=== PATIENT | female | born 1975 | race Caucasian/White ===

== ENCOUNTER → 2016-04-24 | Outpatient (CLI) | payer BC ==
--- NOTE | 2016-04-24 11:13 | MM ---
Reason for exam: follow-up at short interval from prior study. Last mammogram was performed 6 months ago. History: Family history of breast cancer in paternal aunt at age 24 and breast cancer in maternal aunt. Took hormonal contraceptives for 7 years beginning at age 17. Physical Findings: Nurse did not find any significant physical abnormalities on exam. MG Diagnostic Mammo LT w CAD CC and MLO view(s) were taken of the left breast. Prior study comparison: October 11, 2015, bilateral MG screening mammo w CAD. There are scattered fibroglandular densities. There is no dominant lesion. There are stable benign left axillary masses, probable lymph nodes. These results were verbally communicated with the patient and result sheet given to the patient on 04/24/16. ASSESSMENT: Benign, BI-RAD 2 RECOMMENDATION: Return to routine screening mammogram schedule for both breasts. Back on schedule.
--- NOTE | 2016-04-24 11:16 | USB ---
Reason for exam: follow-up at short interval from prior study. History: Family history of breast cancer in paternal aunt at age 24 and breast cancer in maternal aunt. Took hormonal contraceptives for 7 years beginning at age 17. US Breast LT Left breast ultrasound including all four quadrants, the retroareolar region and axilla demonstrates no cystic or solid lesion seen greater than 0.50cm. These results were verbally communicated with the patient and result sheet given to the patient on 04/24/16. ASSESSMENT: Benign, BI-RAD 2 RECOMMENDATION: Return to routine screening mammogram schedule for both breasts. Back on schedule.
== END | disposition home or self-care (01) ==
LOC: RADMAMWWP 10:06
PROVIDERS: ATTEND Obstetrics & Gynecology
DX: R92.8 Other abnormal and inconclusive findings on diagnostic imaging of breast (principal)
CPT/HCPCS: 76641; G0206

== ENCOUNTER → 2018-06-17 | Outpatient (CLI) | payer BC ==
--- NOTE | 2018-06-20 12:15 | MM ---
Reason for exam: screening (asymptomatic). Last mammogram was performed 1 year and 4 months ago. History: Family history of breast cancer in paternal aunt at age 24 and breast cancer in maternal aunt. Took hormonal contraceptives for 7 years beginning at age 17. Physical Findings: A clinical breast exam by your physician is recommended on an annual basis and results should be correlated with mammographic findings. MG Screening Mammo w CAD Bilateral CC and MLO view(s) were taken. Prior study comparison: February 12, 2017, bilateral MG screening mammo w CAD. April 24, 2016, left breast MG diagnostic mammo LT w CAD. The breast tissue is heterogeneously dense. This may lower the sensitivity of mammography. There is no discrete abnormality. ASSESSMENT: Negative, BI-RAD 1 RECOMMENDATION: Routine screening mammogram of both breasts in 1 year.
== END ==
LOC: RADMAMWWP 09:55
PROVIDERS: ATTEND Obstetrics & Gynecology
DX: Z12.31 Encounter for screening mammogram for malignant neoplasm of breast (principal); Z80.3 Family history of malignant neoplasm of breast
CPT/HCPCS: 77067

== ENCOUNTER → 2019-04-07 | Day surgery (SDC) | payer BC ==
[2019-04-05 09:59] VITALS: BMI 26.5
[~2019-04-07] MED LIST: LACTATED RINGERS 1,000 ML IV SCH; LIDOCAINE 1% INJ 10MG/ML (20 ML MDV) ONE; PROPOFOL 10 MG/ML 20 ML VIAL IV ONE
[2019-04-07 08:46] VITALS: RESP 16; TEMP 98.9
--- NOTE | 2019-04-07 09:21 | P.GSHP ---
History of Present Illness H&P Date: 04/07/19 Chief Complaint: GERD, diarrhea 's is a 43-year-old female who presents today for EGD colonoscopy. Patient points of GERD and diarrhea. She is appears history of LAP-BAND surgery. Past Medical History Past Medical History: Mitral Valve Prolapse (MVP) Additional Past Medical History / Comment(s): heart murmmur. recent diarrhea and stomach pain History of Any Multi-Drug Resistant Organisms: None Reported Past Surgical History: Appendectomy, Bariatric Surgery, Section, Cholecystectomy, Uterine Ablation Additional Past Surgical History / Comment(s): lap-band 2010 Past Anesthesia/Blood Transfusion Reactions: Postoperative Nausea & Vomiting (PONV) Smoking Status: Never smoker - Past Family History Mother Family Medical History: No Reported History Medications and Allergies Home Medications Medication Instructions Recorded Confirmed Type ALPRAZolam [Xanax] 0.25 mg PO BID PRN 01/23/15 04/07/19 History Cyclobenzaprine [Flexeril] 10 mg PO DAILY PRN 01/23/15 04/07/19 History Ibuprofen [Motrin] 200 - 400 mg PO Q6HR PRN 01/23/15 04/05/19 History Rizatriptan Benzoate [Maxalt] 10 mg PO DAILY PRN 01/23/15 04/07/19 History Allergies Allergy/AdvReac Type Severity Reaction Status Date / Time prochlorperazine Allergy shaking Verified 04/07/19 08:28 [From Compazine] prochlorperazine edisylate Allergy shaking Verified 04/07/19 08:28 [From Compazine] prochlorperazine maleate Allergy shaking Verified 04/07/19 08:28 [From Compazine] steri strips Allergy Rash/Hives Uncoded 04/07/19 08:28 Surgical - Exam Vital Signs Temp Pulse Resp BP Pulse Ox 98.9 F 94 16 123/76 100 04/07/19 08:39 04/07/19 08:39 04/07/19 08:39 04/07/19 08:39 04/07/19 08:39 - General well developed, well nourished, no distress - Eyes PERRL - ENT normal pinna - Neck no masses - Respiratory normal expansion - Cardiovascular Rhythm: regular - Abdomen Abdomen: soft, non tender Assessment and Plan Assessment: GERD, diarrhea. We'll perform EGD and colonoscopy.
--- NOTE | 2019-04-07 09:42 | P.OP ---
Date of Procedure: 04/07/19 Preoperative Diagnosis: GERD Diarrhea Postoperative Diagnosis: Antral gastritis LAP-BAND without evidence of any inflammation or erosion Procedure(s) Performed: EGD Anesthesia: MAC Surgeon: Caleb Alves Pathology: other (Antrum) Condition: stable Disposition: PACU Description of Procedure: The patient's placed on the endoscopy table in the lateral position. She received IV sedation. The gastroscope was oropharynx passed in the esophagus and into the stomach. Scope was then placed through the pylorus. The first and second portion duodenum appeared normal. Scope was then brought back the antrum this was mildly inflamed. A biopsies performed. Scope was then retroflexed and the remainder of the stomach appeared normal. Patient had a previous placed Kyle device. This was without evidence of erosion. The scope was then brought back in the proximal gastric pouch appeared normal. The GE junction was at 40 cm. The distal esophagus appeared normal. The proximal esophagus appeared normal. Scope withdrawn for patient. Next digital rectal exam was performed. This was normal. The flexible colonoscope was then placed patient anus passed rotator entire colon. The ileocecal valve was visualized. The cecum, ascending and transverse colon appeared normal. In the descending and sigmoid colon there was evidence of diverticular changes. There is no evidence of diverticulitis. The scope was then brought back the rectum and this appeared normal. Scope withdrawn for patient.
[2019-04-07 10:07] VITALS: BP 116/76; PULSE 69
== END ==
LOC: ORWHC2ENDO 08:16
PROVIDERS: ATTEND Surgery
DX: K29.50 Unspecified chronic gastritis without bleeding (principal); K21.9 Gastro-esophageal reflux disease without esophagitis; K57.30 Diverticulosis of large intestine without perforation or abscess without bleeding; I34.1 Nonrheumatic mitral (valve) prolapse; F41.9 Anxiety disorder, unspecified; Z98.84 Bariatric surgery status; Z90.49 Acquired absence of other specified parts of digestive tract; Z91.048 Other nonmedicinal substance allergy status; Z88.8 Allergy status to other drugs, medicaments and biological substances
CPT/HCPCS: 88305; 84703; 45378; 43239; J2001; J2704

== ENCOUNTER → 2019-12-01 | Outpatient (CLI) | payer BC ==
--- NOTE | 2019-12-01 10:43 | ECHOF ---
Referral Reason:R01.1 heart murmur MEASUREMENTS -------- HEIGHT: 154.9 cm WEIGHT: 66.2 kg BP: RVIDd: 2.9 cm (< 3.3) IVSd: 0.8 cm (0.6 - 1.1) LVIDd: 4.7 cm (3.9 - 5.3) LVPWd: 1.1 cm (0.6 - 1.1) IVSs: 1.2 cm LVIDs: 3.2 cm LVPWs: 1.4 cm LAESV Index (A-L): 21.13 ml/m Ao Diam: 2.6 cm (2.0 - 3.7) AV Cusp: 1.9 cm (1.5 - 2.6) MV EXCURSION: 14.270 mm (> 18.000) MV EF SLOPE: 91 mm/s (70 - 150) EPSS: 0.8 cm MV E Travon: 0.92 m/s MV DecT: 182 ms MV A Travon: 0.57 m/s MV E/A Ratio: 1.61 RAP: 5.00 mmHg RVSP: 25.43 mmHg FINDINGS -------- This was a technically good study. The left ventricular size is normal. Left ventricular wall thickness is normal. Overall left vent ricular systolic function is normal with, an EF between 55 - 60 %. The diastolic filling pattern is normal for the age of the patient 8.54. The right ventricle is normal in size. Normal LA size by volume 22+/-6 ml/m2. The right atrial size is normal. Interatrial and interventricular septum intact. The aortic valve is trileaflet and appears structurally normal. There is no evidence of aortic regu rgitation. There is no evidence of aortic stenosis. The mitral valve is normal. There is trace to mild mitral regurgitation. Mild tricuspid regurgitation present. There is no evidence of pulmonary hypertension. The right v entricular systolic pressure, as measured by Doppler, is 25.43mmHg. There is no pulmonic regurgitation present. The aortic root size is normal. Normal inferior vena cava with normal inspiratory collapse consistent with estimated right atrial pre ssure of 5 mmHg. There is no pericardial effusion. CONCLUSIONS -------- 1. The left ventricular size is normal. 2. Left ventricular wall thickness is normal. 3. Overall left ventricular systolic function is normal with, an EF between 55 - 60 %. 4. The diastolic filling pattern is normal for the age of the patient 8.54 5. There is trace to mild mitral regurgitation. 6. Mild tricuspid regurgitation present. TALEND DEVELOPER: Lisa Chun RDCS
== END | disposition home or self-care (01) ==
LOC: RADECHMAIN 08:32
PROVIDERS: ATTEND Family Medicine
DX: I08.1 Rheumatic disorders of both mitral and tricuspid valves (principal)
CPT/HCPCS: 93306

== ENCOUNTER → 2019-12-01 | Outpatient (CLI) | payer BC ==
--- NOTE | 2019-12-04 09:25 | MM ---
Reason for exam: screening (asymptomatic). Last mammogram was performed 1 year and 5 months ago. History: Family history of breast cancer in paternal aunt at age 24 and breast cancer in maternal aunt. Took hormonal contraceptives for 7 years beginning at age 17. Physical Findings: A clinical breast exam by your physician is recommended on an annual basis and results should be correlated with mammographic findings. MG Screening Mammo w CAD Bilateral CC and MLO view(s) were taken. XCCL view(s) were taken of the right breast. Prior study comparison: June 17, 2018, bilateral MG screening mammo w CAD. February 12, 2017, bilateral MG screening mammo w CAD. The breast tissue is heterogeneously dense. This may lower the sensitivity of mammography. There is no discrete abnormality. ASSESSMENT: Negative, BI-RAD 1 RECOMMENDATION: Routine screening mammogram of both breasts in 1 year.
== END | disposition home or self-care (01) ==
LOC: RADMAMWWP 09:05
PROVIDERS: ATTEND Obstetrics & Gynecology
DX: Z12.31 Encounter for screening mammogram for malignant neoplasm of breast (principal)
CPT/HCPCS: 77067

== ENCOUNTER → 2020-12-13 | Outpatient (CLI) | payer BC ==
--- NOTE | 2020-12-17 11:11 | MM ---
Reason for exam: screening (asymptomatic). Last mammogram was performed 1 year ago. History: Family history of breast cancer in paternal aunt at age 24 and breast cancer in maternal aunt. Took hormonal contraceptives for 7 years beginning at age 17. Physical Findings: A clinical breast exam by your physician is recommended on an annual basis and results should be correlated with mammographic findings. MG 3D Screening Mammo W/Cad Bilateral CC and MLO view(s) were taken. Prior study comparison: December 01, 2019, bilateral MG screening mammo w CAD. June 17, 2018, bilateral MG screening mammo w CAD. February 12, 2017, bilateral MG screening mammo w CAD. There are scattered fibroglandular densities. No significant changes when compared with prior studies. ASSESSMENT: Benign, BI-RAD 2 RECOMMENDATION: Routine screening mammogram of both breasts in 1 year.
== END | disposition home or self-care (01) ==
LOC: RADMAMWWP 10:02
PROVIDERS: ATTEND Obstetrics & Gynecology
DX: Z12.31 Encounter for screening mammogram for malignant neoplasm of breast (principal); Z80.3 Family history of malignant neoplasm of breast
CPT/HCPCS: 77063; 77067

== ENCOUNTER → 2022-01-09 | Outpatient (CLI) | payer BC ==
--- NOTE | 2022-01-12 08:27 | MM ---
Reason for Exam: Screening (asymptomatic). Last mammogram was performed 1 year(s) and 1 month(s) ago. Patient History: Menarche at age 14. First Full-Term at age 25. Hormonal Contraceptives for 7 years from age 17 until age 24. Paternal aunt had breast cancer, age 24. Maternal aunt had breast cancer, age 45. Risk Values: Riya 5 year model risk: 0.7%. NCI Lifetime model risk: 8.6%. Prior Study Comparison: 06/17/2018 Bilateral Screening Mammogram, [facility]. 12/01/2019 Bilateral Screening Mammogram, [facility]. 12/13/2020 Bilateral Screening Mammogram, [facility]. Tissue Density: The breast tissue is heterogeneously dense. This may lower the sensitivity of mammography. Findings: Analyzed By CAD. There is no suspicious group of microcalcifications or new suspicious mass in either breast. No significant change from prior exams. Overall Assessment: Negative, BI-RAD 1 Management: Screening Mammogram of both breasts in 1 year. A clinical breast exam by your physician is recommended on an annual basis and results should be correlated with mammographic findings. Electronically signed and approved by: Patrick Perez D.O.
== END | disposition home or self-care (01) ==
LOC: RADMAMWWP 08:26
PROVIDERS: ATTEND Obstetrics & Gynecology
DX: Z12.31 Encounter for screening mammogram for malignant neoplasm of breast (principal); Z80.3 Family history of malignant neoplasm of breast
CPT/HCPCS: 77063; 77067

== ENCOUNTER → 2023-02-19 | Outpatient (CLI) | payer BC ==
--- NOTE | 2023-02-22 16:20 | MM ---
Reason for Exam: Screening (asymptomatic). Last mammogram was performed 1 year(s) and 1 month(s) ago. Patient History: Menarche at age 14. First Full-Term at age 25. Hormonal Contraceptives for 7 years from age 17 until age 24. Paternal aunt had breast cancer, age 24. Maternal aunt had breast cancer, age 45. Last menstrual period: 02/14/2023 Risk Values: Riya 5 year model risk: 0.8%. NCI Lifetime model risk: 8.5%. Prior Study Comparison: 12/01/2019 Bilateral Screening Mammogram, [facility]. 12/13/2020 Bilateral Screening Mammogram, [facility]. 01/09/2022 Bilateral MG 3D screening mammo w/cad, [facility]. Tissue Density: The breast tissue is heterogeneously dense. This may lower the sensitivity of mammography. Findings: Analyzed By CAD. Abdomen appears symmetrical and stable. No significant interval change is evident. No suspicious groups of microcalcifications, spiculated or lobular masses, architectural distortion or other secondary signs of malignancy are mammographically apparent. Overall Assessment: Benign, BI-RAD 2 Management: Screening Mammogram of both breasts in 1 year. A negative mammogram report should not preclude additional follow up of suspicious palpable abnormalities. Patient should continue monthly self breast exam. A clinical breast exam by your physician is recommended on an annual basis and results should be correlated with mammographic findings. Electronically signed and approved by: Ismael Gutierrez D.O. Radiologis
== END | disposition home or self-care (01) ==
LOC: RADMAMWWP 13:31
PROVIDERS: ATTEND Obstetrics & Gynecology
DX: Z12.31 Encounter for screening mammogram for malignant neoplasm of breast (principal); Z80.3 Family history of malignant neoplasm of breast
CPT/HCPCS: 77063; 77067

== ENCOUNTER → 2024-03-03 | Outpatient (CLI) | payer BC ==
--- NOTE | 2024-03-09 17:50 | MM ---
Reason for Exam: Screening (asymptomatic). Last screening mammogram was performed 12 month(s) ago. Patient History: Menarche at age 14. First Full-Term at age 25. Premenopausal. Hormonal Contraceptives for 7 years from age 17 until age 24. Paternal aunt had breast cancer, age 24. Maternal aunt had breast cancer, age 45. Risk Values: Riya 5 year model risk: 0.8%. NCI Lifetime model risk: 8.4%. Prior Study Comparison: 12/13/2020 Bilateral Screening Mammogram, [facility]. 01/09/2022 Bilateral MG 3D screening mammo w/cad, [facility]. 02/19/2023 Bilateral MG 3D screening mammo w/cad, [facility]. Tissue Density: The breasts are heterogeneously dense, which may obscure small masses. Findings: Analyzed By CAD. Areas of asymmetric density are unchanged. There is no suspicious group of microcalcifications or new suspicious mass in either breast. Overall Assessment: Benign, BI-RAD 2 Management: Screening Mammogram of both breasts in 1 year. . Patient should continue monthly self-breast exams. A clinical breast exam by your physician is recommended on an annual basis. This exam should not preclude additional follow-up of suspicious palpable abnormalities. Note on Riya scores and lifetime risk: 1. A Riya score greater than 3% is considered moderate risk. If this is the case, consider specialist referral to assess eligibility for a risk reducing agent. 2. If overall lifetime risk for the development of breast cancer is 20% or higher, the patient may qualify for future screening with alternating mammogram and breast MRI. [facility], , 03/09/2024 5:47 PM. Electronically signed and approved by: Brian Zaragoza M.D. Radiologist
== END | disposition home or self-care (01) ==
LOC: RADMAMWWP 10:55
PROVIDERS: ATTEND Obstetrics & Gynecology
DX: Z12.31 Encounter for screening mammogram for malignant neoplasm of breast (principal); Z80.3 Family history of malignant neoplasm of breast; R92.333 Mammographic heterogeneous density, bilateral breasts
CPT/HCPCS: 77063; 77067

== ENCOUNTER → 2024-05-22 | Outpatient (CLI) | payer BC ==
[2024-05-22 08:30] VITALS: BP 111/74; PULSE 82; RESP 15; TEMP 98.1
--- NOTE | 2024-05-22 15:14 | P.PAINPG ---
PQRS Measure Charge Sheet Comment: HISTORY OF PRESENT ILLNESS: A 48 yr old female as a referral from Dr Macias presents today w severe and chronic FORD and neck pain since Feb 2024 secondary to Occipital Neuralgia/ Cervicogenic FORD for evaluation. Pt states pain level is provoked at 6-8 /10 in intensity, wax & wanes in character, localized in the back of the head, predominantly axial, sharp in character w occasional shooting pain towards the back of the ears to the top of the head. Pain is provoked by hyperextension and lasts 3 weeks every month. Pain is alleviated by FARHEEN blocks in the past, PT x 6 wks which ended in 2020, physician guided home exercises 5-6 times weekly since 2020, massage therapy monthly since 2016, chiropractic treatments monthly since 2007, medications, heat, repositioning and rest . PMH: OA, Hypothyroidism, MVP PSH: EGD (2023), Appendectomy, Lap Band (2009), Cholecystectomy, , Uterine Ablation SH: Negative x3 FH: Mo- No Reported History All: See list Meds: See list incl Maxalt, Flexeril, Ibu REVIEW OF ORGAN SYSTEMS: CONSTITUTIONAL: No fevers or chills. No recent weight loss. NEUROLOGICAL: + numbness and tingling along the distal extremities. No seizure disorders or headaches. MUSCULOSKELETAL: + pain PSYCHIATRIC: Denies current depression or suicidal thoughts. Physical Examinations : Constitutional : Cooperative , not in acute distress . Neurologic : Cranial nerve II to XII intact. No focal neurological deficits. Psychiatric : alert & oriented x 3. Matching mood & appropriate affect. Judgment & insight intact. Musculoskeletal : Cervical Spine +BL FARHEEN TTP Motor strength in the deltoid and biceps: Normal right side. Normal Left side Motor strength biceps and the wrist extensors: Normal right side . Normal left side Motor strength in the triceps muscle: Normal right side. Normal left side Deep tendon reflexes: Normal at the biceps. Normal at Brachioradialis. Normal at triceps Vertebral body tenderness to deep palpation over Cervical facet loading test: positive bilaterally Spurling test: positive bilaterally Neck distraction test: positive bilaterally Fernandez sign: positive bilaterally Lumbar spine Motor strength lower extremities ,thigh and legs 5/5 Right side , 5/5 Left side Deep tendon reflexes : Normal Knee Jerk. Normal Ankle Jerk Vertebral body tenderness over Leggett Test positive Lumbar facet Loading Test: positive Right / positive Left Range of motion of the lumbar spine Flexion 30 degrees, extension 10 degrees Straight Leg Raise test: Left/ Right positive at degrees Edyta test: positive right / positive left. Severe tenderness over the Sacroiliac joint on the Right / Left sides Gaenslen test: positive bilaterally Seated flexion test: positive bilaterally. Sacral spine : Severe tenderness over the Sacroiliac joint: right side / left side Range of motion: Flexion of the lumbar spine <60 degrees Range of motion: Extension of the lumbar spine <20 degrees Gaenslen's Test positive Edyta test: positive right side / left side Thigh Thrust Test Sacral Thrust Test Imaging: None on file Assessment/ Plan : Occipital Neuralgia, Cervicogenic FORD Recommendation of Skull X ray M543.81. Risks, benefits of procedure discussed and patient verbalized understanding. Admits to anti- coagulant use or medical history of diabetes. Protocol for discontinuation/ continuation of medications cathy procedure discussed. All questions answered. I have spent greater than 30 minutes on patient care today. Dr Bryant was available by phone for the evaluation of this patient. The time was used to review the medical records including relevant urine studies and Prescription history (MAPs), review of the available imaging, evaluation and examination of the patient, coordination of care with the medical staff and if applicable referring physicians, as well as creation of the medical record PQRS Narrative: Smoking Status Never smoker Home Medications: Ambulatory Orders ALPRAZolam [Xanax] 0.25 mg PO BID PRN 01/23/15 Cyclobenzaprine [Flexeril] 10 mg PO DAILY PRN 01/23/15 Ibuprofen [Motrin] 200 - 400 mg PO Q6HR PRN 01/23/15 Rizatriptan Benzoate [Maxalt] 10 mg PO DAILY PRN 01/23/15 Diphenox-Atrop 2.5-0.025 mg [Lomotil] 1 tab PO 5XD PRN 3 Days #15 tablet 04/07/19 Controlled Substance Measures - Controlled Substance Measures Is patient prescribed a controlled substance at discharge?: No
== END ==
LOC: PNWHC3 08:05
PROVIDERS: ATTEND Specialist
DX: M54.81 Occipital neuralgia (principal); G44.86 Cervicogenic headache; Z88.3 Allergy status to other anti-infective agents; Z91.048 Other nonmedicinal substance allergy status
CPT/HCPCS: 99202

== ENCOUNTER → 2024-06-07 | Outpatient (CLI) | payer BC ==
[2024-06-07 08:23] VITALS: BP 101/66; PULSE 80; RESP 17; TEMP 97.6
--- NOTE | 2024-06-07 15:19 | P.PAINPG ---
PQRS Measure Charge Sheet Comment: HISTORY OF PRESENT ILLNESS: A 48 yr old female presents today w severe and chronic FORD and neck pain since Feb 2024 secondary to Occipital Neuralgia/ Cervicogenic FORD for evaluation. Pt states pain level is provoked at 8 /10 in intensity, wax & wanes in character, localized in the back of the head, predominantly axial, stabby in character w occasional shooting pain towards the back of the ears to the top of the head. Pain is provoked by hyperextension and lasts 3 weeks every month. Pain is alleviated by FARHEEN blocks in the past, PT x 6 wks which ended in 2020, physician guided home exercises 5-6 times weekly since 2020, massage therapy monthly since 2016, chiropractic treatments monthly since 2007, medications, heat, repositioning and rest . Inteventional procedures include Medications include Maxalt, Flexeril, Ibu REVIEW OF ORGAN SYSTEMS: CONSTITUTIONAL: No fevers or chills. No recent weight loss. NEUROLOGICAL: + numbness and tingling along the distal extremities. No seizure disorders or headaches. MUSCULOSKELETAL: + pain PSYCHIATRIC: Denies current depression or suicidal thoughts. Physical Examinations : Constitutional : Cooperative , not in acute distress . Neurologic : Cranial nerve II to XII intact. No focal neur ological deficits. Psychiatric : alert & oriented x 3. Matching mood & appropriate affect. Judgment & insight intact. Musculoskeletal : Cervical Spine +BL FARHEEN TTP Motor strength in the deltoid and biceps: Normal right side. Normal Left side Motor strength biceps and the wrist extensors: Normal right side . Normal left side Motor strength in the triceps muscle: Normal right side. Normal left side Deep tendon reflexes: Normal at the biceps. Normal at Brachioradialis. Normal at triceps Vertebral body tenderness to deep palpation over Cervical facet loading test: positive bilaterally Spurling test: positive bilaterally Neck distraction test: positive bilaterally Fernandez sign: positive bilaterally Lumbar spine Motor strength lower extremities ,thigh and legs 5/5 Right side , 5/5 Left side Deep tendon reflexes : Normal Knee Jerk. Normal Ankle Jerk Vertebral body tenderness over Leggett Test positive Lumbar facet Loading Test: positive Right / positive Left Range of motion of the lumbar spine Flexion 30 degrees, extension 10 degrees Straight Leg Raise test: Left/ Right positive at degrees Edyta test: positive right / positive left. Severe tenderness over the Sacroiliac joint on the Right / Left sides Gaenslen test: positive bilaterally Seated flexion test: positive bilaterally. Sacral spine : Severe tenderness over the Sacroiliac joint: right side / left side Range of motion: Flexion of the lumbar spine <60 degrees Range of motion: Extension of the lumbar spine <20 degrees Gaenslen's Test positive Edyta test: positive right side / left side Thigh Thrust Test Sacral Thrust Test Imaging: None on file Assessment/ Plan : Occipital Neuralgia, Cervicogenic FORD Recommendation of PT x 6 wks, x ray cervical M54.12. Would benefit from BL FARHEEN #1 if continues to have symptoms. Risks, benefits of procedure discussed and patient verbalized understanding. Admits to anti- coagulant use or medical history of diabetes. Protocol for discontinuation/ continuation of medications cathy procedure discussed. All questions answered. I have spent greater than 30 minutes on patient care today. Dr Bryant was available by phone for the evaluation of this patient. The time was used to review the medical records including relevant urine studies and Prescription history (MAPs), review of the available imaging, evaluation and examination of the patient, coordination of care with the medical staff and if applicable referring physicians, as well as creation of the medical record PQRS Narrative: Smoking Status Never smoker Hx Alcohol Use (MH) No Home Medications: Ambulatory Orders ALPRAZolam [Xanax] 0.25 mg PO BID PRN 01/23/15 Cyclobenzaprine [Flexeril] 10 mg PO DAILY PRN 01/23/15 Ibuprofen [Motrin] 200 - 400 mg PO Q6HR PRN 01/23/15 Rizatriptan Benzoate [Maxalt] 10 mg PO DAILY PRN 01/23/15 Diphenox-Atrop 2.5-0.025 mg [Lomotil] 1 tab PO 5XD PRN 3 Days #15 tablet 04/07/19 Controlled Substance Measures - Controlled Substance Measures Is patient prescribed a controlled substance at discharge?: No
== END ==
LOC: PNWHC3 08:05
PROVIDERS: ATTEND Specialist
DX: M54.12 Radiculopathy, cervical region (principal); M54.81 Occipital neuralgia; E11.9 Type 2 diabetes mellitus without complications; Z88.8 Allergy status to other drugs, medicaments and biological substances
CPT/HCPCS: 99212

== ENCOUNTER → 2024-06-09 | Outpatient (CLI) | payer BC ==
--- NOTE | 2024-06-09 14:04 | XR ---
EXAMINATION TYPE: XR cervical spine limited DATE OF EXAM: 06/09/2024 1:47 PM COMPARISON: 10/26/2010 CLINICAL INDICATION: Female, 48 years old with history of M54.12 RADICULOPATHY, CERVICAL REGION; PHH, pain TECHNIQUE: XR cervical spine limited, (1-2) views of the cervical spine FINDINGS: The osseous structures show normal alignment without evidence of an acute fracture. Minimal osteophyt e formation present throughout the cervical spine. Pedicles are intact. Soft tissues are within norm al limits. The odontoid appears intact. IMPRESSION: 1. No fracture or dislocation. 2. Minimal degenerative disc disease changes of the cervical spine. [facility], , 06/09/2024 2:01 PM
== END | disposition home or self-care (01) ==
LOC: RADXRMAIN 13:30
PROVIDERS: ATTEND Specialist
DX: M50.10 Cervical disc disorder with radiculopathy, unspecified cervical region (principal)
CPT/HCPCS: 72040

== ENCOUNTER 2024-07-21 08:02 | Day surgery (SDC) | payer BC ==
[2024-07-19 13:19] VITALS: BMI 29.2
[~2024-07-21 08:02] MED LIST changes: -LIDOCAINE 1% INJ 10MG/ML (20 ML MDV) ONE; -PROPOFOL 10 MG/ML 20 ML VIAL IV ONE
[2024-07-21 08:29] VITALS: TEMP 97.7
[2024-07-21] MEDS ORDERED: TRIAMCINOLONE ACETONIDE 40 MG/ML 1 ML VIAL ONE (09:29)
[2024-07-21] MEDS ORDERED: ROPIVACAINE 5 MG/ML 30 ML VIAL ONE (09:29)
--- NOTE | 2024-07-21 09:40 | P.PCN ---
Date of Procedure: 07/21/24 Description of Procedure: Procedure: Bilateral greater occipital nerve block Pre and post-procedure diagnosis: Headache and Occipital neuralgia Performed by: Jacob Sanders, Anesthesia: Local with 1% Lidocaine Complications: none blood loss: none specimen removed none . Indications for Procedure: Ms. Meade is a 48-year-old female had a long history of migraine headache, and occipital neuralgia, who has been suffering from chronic headache. Procedure and Findings: The patient was seen and examined and written informed consent was obtained after explaining the risks, benefits and alternative of the procedure to the patient. The patient was positioned in the sitting position with the head slightly flexed and forehead rested on a pillow. By palpation, the external occipital protuberance and mastoid process were identified and mid point in between was located. One target point was medial to that mid point for greater occipital nerve and another target was lateral to that mid point for lesser occipital nerve. The target point for greater occipital nerve was just medial to the occipital artery pulsation. The skin preparation was done with Chloraprep x 2 and sterile technique was observed throughout the procedure. A 25-gauge 1.5 inch needle was placed vertically downward, bony contact was obtained, negative aspiration was confirmed and 6 ml of block solution was injected. The needle was redirected little medially and laterally in a fanning fashion and addition medication was injected after negative aspiration. For each greater occipital nerve 6 ml was injected; total solution injected was 12 ml containing kenalog 80 mg and 10 mL of 0.5% preservative free Bupivacaine. The needle was removed, needle puncture sites were cleaned and pressure was applied. The patient tolerated the procedure very well. Disposition: Patient taken to the recovery under stable conditions. She was monitored in the recovery until meeting the discharge criteria. RN was given discharge instruction before discharging the patient. Patient can follow-up with pain clinic in 4 to 6 weeks duration for follow-up visit.
[2024-07-21 09:57] VITALS: BP 121/77; PULSE 67; RESP 16
== END 2024-07-21 09:59 | disposition home or self-care (01) ==
LOC: ORPAIN 08:02
DX: M54.81 Occipital neuralgia (principal); R51.9 Headache, unspecified
CPT/HCPCS: 81025; 64405; J3301; J2795

== ENCOUNTER → 2024-08-16 | Outpatient (CLI) | payer BC ==
[2024-08-16 08:37] VITALS: BP 103/69; PULSE 70; RESP 16; TEMP 97.7
--- NOTE | 2024-08-16 16:01 | P.PAINPG ---
PQRS Measure Charge Sheet Comment: HISTORY OF PRESENT ILLNESS: A 48 yr old female presents today w severe and chronic FORD and neck pain since Feb 2024 secondary to Occipital Neuralgia/ Cervicogenic FORD for evaluation s/p BL FARHEEN #1. Pt states she experienced 75-80 % pain relief x 3 wks s/p procedure. Pt states pain level is provoked at 6 /10 in intensity, wax & wanes in character, localized in the back of the head, predominantly axial, sharp in character w occasional shooting pain towards the back of the ears to the top of the head. Pain is provoked by hyperextension and lasts 3 weeks every month. Pain is alleviated by FARHEEN blocks in the past, PT x 6 wks which ended in 2020, physician guided home exercises 5-6 times weekly since 2020, massage therapy monthly since 2016, chiropractic treatments monthly since 2007 w next visit scheduled 08/17/24, medications, heat, repositioning and rest . Pt was examined and was negative for any neurological deficits with oculomotor function, facial symmetry, deglutition, spinal movements, UE and LE movements, and gait & balance Inteventional procedures include BL FARHEEN x1 Medications include Maxalt, Flexeril, Ibu REVIEW OF ORGAN SYSTEMS: CONSTITUTIONAL: No fevers or chills. No recent weight loss. NEUROLOGICAL: + numbness and tingling along the distal extremities. No seizure disorders or headaches. MUSCULOSKELETAL: + pain PSYCHIATRIC: Denies current depression or suicidal thoughts. Physical Examinations : Constitutional : Cooperative , not in acute distress . Neurologic : Cranial nerve II to XII intact. No focal neurological deficits. Psychiatric : alert & oriented x 3. Matching mood & appropriate affect. Judgment & insight intact. Musculoskeletal : Cervical Spine +BL FARHEEN TTP Motor strength in the deltoid and biceps: Normal right side. Normal Left side Motor strength biceps and the wrist extensors: Normal right side . Normal left side Motor strength in the triceps muscle: Normal right side. Normal left side Deep tendon reflexes: Normal at the biceps. Normal at Brachioradialis. Normal at triceps Vertebral body tenderness to deep palpation over Cervical facet loading test: positive BL C2-C3/ C3-C4 Spurling test: positive bilaterally Neck distraction test: positive bilaterally Fernandez sign: positive bilaterally Lumbar spine Motor strength lower extremities ,thigh and legs 5/5 Right side , 5/5 Left side Deep tendon reflexes : Normal Knee Jerk. Normal Ankle Jerk Vertebral body tenderness over Leggett Test positive Lumbar facet Loading Test: positive Right / positive Left Range of motion of the lumbar spine Flexion 30 degrees, extension 10 degrees Straight Leg Raise test: Left/ Right positive at degrees Edyta test: positive right / positive left. Severe tenderness over the Sacroiliac joint on the Right / Left sides Gaenslen test: positive bilaterally Seated flexion test: positive bilaterally. Sacral spine : Severe tenderness over the Sacroiliac joint: right side / left side Range of motion: Flexion of the lumbar spine <60 degrees Range of motion: Extension of the lumbar spine <20 degrees Gaenslen's Test positive Edyta test: positive right side / left side Thigh Thrust Test Sacral Thrust Test Imaging: X ray cervcial spine from 06/09/24 reviewed Assessment/ Plan : Occipital Neuralgia, Cervicogenic FORD Recommendation of MRI non contrast cervical M54.81. All questions answered. I have spent greater than 30 minutes on patient care today. Dr Bryant was available by phone for the evaluation of this patient. The time was used to review the medical records including relevant urine studies and Prescription history (MAPs), review of the available imaging, evaluation and examination of the patient, coordination of care with the medical staff and if applicable referring physicians, as well as creation of the medical record - Pain Location Head Non-Pharmacological Interventions: Chiropractic Treatment, Heat, Ice, Massage, Relaxation Technique Pharmacological Interventions: PRN Medication, Scheduled Medication PQRS Narrative: Smoking Status Never smoker Hx Alcohol Use (MH) No Home Medications: Ambulatory Orders ALPRAZolam [Xanax] 0.25 mg PO BID PRN 01/23/15 Cyclobenzaprine [Flexeril] 10 mg PO DAILY PRN 01/23/15 Ibuprofen [Motrin] 200 - 400 mg PO Q6HR PRN 01/23/15 Rizatriptan Benzoate [Maxalt] 10 mg PO DAILY PRN 01/23/15 Levothyroxine Sodium 100 mcg PO DAILY 07/19/24 Magnesium Oxide [Magnesium] 500 mg PO DAILY 07/19/24 Pantoprazole [Protonix] 40 mg PO DAILY 07/21/24 Controlled Substance Measures - Controlled Substance Measures Is patient prescribed a controlled substance at discharge?: No
== END ==
LOC: PNWHC3 08:18
PROVIDERS: ATTEND Specialist
DX: M54.81 Occipital neuralgia (principal); G44.86 Cervicogenic headache; Z88.8 Allergy status to other drugs, medicaments and biological substances; Z91.048 Other nonmedicinal substance allergy status
CPT/HCPCS: 99211

== ENCOUNTER → 2024-09-03 | Outpatient (CLI) | payer BC ==
--- NOTE | 2024-09-04 00:42 | MR ---
INDICATION: Patient age:Female; 48 years old; Reason for study: M54.81; [facility]. COMPARISON: Cervical spine radiograph 06/09/2024. TECHNIQUE: Multi planar, multi sequence imaging was performed of the cervical spine. No Gadolinium wa s given. FINDINGS: Alignment: The cervical vertebral bodies have preserved heights. Alignment is within normal limits gi ko patient positioning. Bones: T1/T2 hyperintense signal within the C5 vertebral body likely representing a benign vertebral hemangioma. The remaining bone signal is within normal limits. No abnormal STIR signal. Cord: The spinal cord is unremarkable with regards to their signal intensity and morphology. Discs: Minimal multilevel disc desiccation of the cervical spine. No disc height loss. C2-C3: No significant disc pathology. The spinal canal is patent. No neural foraminal stenosis. C3-C4: No significant disc pathology. The spinal canal is patent. No neural foraminal stenosis. C4-C5: No significant disc pathology. The spinal canal is patent. No neural foraminal stenosis. C5-C6: Minimal disc bulge. No significant effacement of the anterior thecal sac. No spinal canal sten osis. No neural foraminal stenosis. C6-C7: Broad-based disc bulge and minimal effacement of the anterior thecal sac. No significant centr al canal stenosis. Minimal bilateral neural foraminal narrowing. C7-T1: No significant disc pathology. The spinal canal is patent. No neural foraminal stenosis. Other: None. IMPRESSION: 1. No evidence for disc herniation or significant spinal canal stenosis. 2. Minimal multilevel disc degeneration of the lower cervical spine as described above. [facility], , 09/04/2024 12:40 AM
== END | disposition home or self-care (01) ==
LOC: RADMRIMAIN 21:25
PROVIDERS: ATTEND Specialist
DX: M50.323 Other cervical disc degeneration at C6-C7 level (principal)
CPT/HCPCS: 72141

== ENCOUNTER → 2024-10-02 | Outpatient (CLI) | payer BC ==
[2024-10-02 08:28] VITALS: BP 111/73; PULSE 70; RESP 16; TEMP 97.2
--- NOTE | 2024-10-02 13:14 | P.PAINPG ---
Objective - Vital Signs Vital signs: Vital Signs Temp 97.2 F L 10/02/24 08:21 Pulse 70 10/02/24 08:21 Resp 16 10/02/24 08:21 BP 111/73 10/02/24 08:21 Pulse Ox 96 10/02/24 08:21 FiO2 Intake & Output 10/01/24 10/02/24 10/02/24 18:59 06:59 18:59 Weight 72.575 kg PQRS Measure Charge Sheet Mode of Arrival: Ambulatory Comment: HISTORY OF PRESENT ILLNESS: A 48 yr old female presents today w severe and chronic FORD and neck pain since Feb 2024 secondary to Occipital Neuralgia/ Cervicogenic FORD for evaluation. Pt states pain level is provoked at 6 /10 in intensity, wax & wanes in character, localized in the lower cervical spine, predominantly axial, sharp in character w occasional shooting pain towards the shoulders. Pain is provoked by hyperextension and lasts 3 weeks every month. Pain is alleviated by FARHEEN blocks in the past, PT x 6 wks which ended in 2020, physician guided home exercises 5-6 times weekly since 2020, massage therapy monthly since 2016, chiropractic treatments monthly since 2007 w next visit scheduled 08/17/24, medications, heat, repositioning and rest . Pt was examined and was negative for any neurological deficits with oculomotor function, facial symmetry, deglutition, spinal m ovements, UE and LE movements, and gait & balance Inteventional procedures include BL FARHEEN x1 Medications include Maxalt, Flexeril, Ibu REVIEW OF ORGAN SYSTEMS: CONSTITUTIONAL: No fevers or chills. No recent weight loss. NEUROLOGICAL: + numbness and tingling along the distal extremities. No seizure disorders or headaches. MUSCULOSKELETAL: + pain PSYCHIATRIC: Denies current depression or suicidal thoughts. Physical Examinations : Constitutional : Cooperative , not in acute distress . Neurologic : Cranial nerve II to XII intact. No focal neurological deficits. Psychiatric : alert & oriented x 3. Matching mood & appropriate affect. Judgment & insight intact. Musculoskeletal : Cervical Spine +BL FARHEEN TTP Motor strength in the deltoid and biceps: Normal right side. Normal Left side Motor strength biceps and the wrist extensors: Normal right side . Normal left side Motor strength in the triceps muscle: Normal right side. Normal left side Deep tendon reflexes: Normal at the biceps. Normal at Brachioradialis. Normal at triceps Vertebral body tenderness to deep palpation over C6 Cervical facet loading test: positive BL C2-C3/ C3-C4 Spurling test: positive bilaterally Neck distraction test: positive BL C6- C7 Fernandez sign: positive bilaterally Lumbar spine Motor strength lower extremities ,thigh and legs 5/5 Right side , 5/5 Left side Deep tendon reflexes : Normal Knee Jerk. Normal Ankle Jerk Vertebral body tenderness over Leggett Test positive Lumbar facet Loading Test: positive Right / positive Left Range of motion of the lumbar spine Flexion 30 degrees, extension 10 degrees Straight Leg Raise test: Left/ Right positive at degrees Edyta test: positive right / positive left. Severe tenderness over the Sacroiliac joint on the Right / Left sides Gaenslen test: positive bilaterally Seated flexion test: positive bilaterally. Sacral spine : Severe tenderness over the Sacroiliac joint: right side / left side Range of motion: Flexion of the lumbar spine <60 degrees Range of motion: Extension of the lumbar spine <20 degrees Gaenslen's Test positive Edyta test: positive right side / left side Thigh Thrust Test Sacral Thrust Test Imaging: X ray cervical spine from 06/09/24 reviewed MRI non contrast cervical spine from 09/03/24 reviewed Assessment/ Plan : Occipital Neuralgia, Cervicogenic FORD, C5-C7 radiculopathy Recommendation of MAYLIN C6-C7 #1. Would benefit from RFA C2-C4. Risks, benefits of procedure discussed and pt verbalized understanding. Protocol for discontinuation/ continuation of medications cathy procedure discussed. All questions answered. I have spent greater than 30 minutes on patient care today. Dr Bryant was available by phone for the evaluation of this patient. The time was used to review the medical records including relevant urine studies and Prescription history (MAPs), review of the available imaging, evaluation and examination of the patient, coordination of care with the medical staff and if applicable referring physicians, as well as creation of the medical record - Pain Location Bilateral Lower Neck Non-Pharmacological Interventions: Chiropractic Treatment, Darkened Room, Heat, Ice, Inactivity, Massage, Position/Reposition, Relaxation Technique, Sitting, Stretching Pharmacological Interventions: Block, PRN Medication, Topical Medication PQRS Narrative: Smoking Status Never smoker Blood Pressure 111/73 Pain Intensity [Bilateral 6 Lower Neck] Scale Used Numeric (1 - 10) Hx Alcohol Use (MH) No Home Medications: Ambulatory Orders ALPRAZolam [Xanax] 0.25 mg PO BID PRN 01/23/15 Cyclobenzaprine [Flexeril] 10 mg PO DAILY PRN 01/23/15 Ibuprofen [Motrin] 200 - 400 mg PO Q6HR PRN 01/23/15 Rizatriptan Benzoate [Maxalt] 10 mg PO DAILY PRN 01/23/15 Levothyroxine Sodium 100 mcg PO DAILY 07/19/24 Magnesium Oxide [Magnesium] 500 mg PO DAILY 07/19/24 Pantoprazole [Protonix] 40 mg PO DAILY 07/21/24 Controlled Substance Measures - Controlled Substance Measures Is patient prescribed a controlled substance at discharge?: No
== END ==
LOC: PNWHC3 08:14
PROVIDERS: ATTEND Specialist
DX: M54.81 Occipital neuralgia (principal); M54.12 Radiculopathy, cervical region; G44.86 Cervicogenic headache; Z91.048 Other nonmedicinal substance allergy status
CPT/HCPCS: 99211